=== PATIENT | female | born 1980 | race Caucasian/White ===

== ENCOUNTER 2018-03-17 08:41 | Emergency (ER) | payer MEDICAID ==
[~2018-03-17] VITALS: Ht 160 cm; Wt 58.3 kg
[~2018-03-17 08:41] MED LIST: OMEP20TA62 PO
[2018-03-17 09:03] VITALS: BP 102/71
[2018-03-17] MEDS ORDERED: DEXAMETHASONE 4 MG TABLET ONE (09:28)
[2018-03-17] MEDS ORDERED: DEXAMETHASONE 4 MG TABLET PO ONE (09:30)
== END 2018-03-17 10:25 | disposition home or self-care (01) ==
LOC: ED 10:15
DX: J00 Acute nasopharyngitis [common cold] (principal); H92.09 Otalgia, unspecified ear; F41.1 Generalized anxiety disorder
CPT/HCPCS: 71046; 87081; 87880; 99285

== ENCOUNTER 2019-05-31 10:32 | Emergency (ER) | payer MEDICAID ==
[~2019-05-31] VITALS: Ht 160 cm; Wt 55.7 kg
[2019-05-31 10:35] VITALS: BP 146/71
[2019-05-31 11:22] LABS: BASOPHILS # (AUTO) 0.02 x10^3/uL (0-0.1); BASOPHILS % (AUTO) 0 % (0-1); EOSINOPHILS % (AUTO) 1 % (1-7); LYMPHOCYTES # (AUTO) 1.48 x10^3/uL (1-3.4); LYMPHOCYTES % (AUTO) 21 % (22-44); MD NO; MEAN CORPUSCULAR HEMOGLOBIN 30.7 pg (27.0-34.8); MEAN CORPUSCULAR HGB CONC 33.3 g/dL (32.4-35.8); MEAN CORPUSCULAR VOLUME 92.3 fL (80-100); MEAN PLATELET VOLUME 10.2 fL (7.4-10.4); MONOCYTES # (AUTO) 0.24 x10^3/uL (0.2-0.8); MONOCYTES % (AUTO) 3 % (2-9); NEUTROPHILS # (AUTO) 5.22 x10^3/uL (1.8-6.8); NEUTROPHILS % (AUTO) 74 % (42-75); PLATELET COUNT 229 x10^3/uL (130-400); RED BLOOD COUNT 4.54 x10^6/uL (3.82-5.3); RED CELL DISTRIBUTION WIDTH 14.3 % (9.6-15.2)
--- NOTE | 2019-05-31 11:22 | NUR ---
URINE SAMPLE WALKED TO LAB
[2019-05-31 11:32] LABS: ALANINE AMINOTRANSFERASE 26 U/L (12-78); ALBUMIN 3.9 g/dL (3.4-5.0); ANION GAP 7 mmol/L (5-15); CALCIUM 8.6 mg/dL (8.5-10.1); CHLORIDE 110 mmol/L (98-107)
[2019-05-31 11:33] LABS: MICROSCOPIC AUTO
[2019-05-31 11:40] LABS: CULTURE INDICATED? YES
[2019-05-31 11:50] LABS: ALKALINE PHOSPHATASE 45 U/L (45-117); BILIRUBIN,TOTAL 0.4 mg/dL (0.2-1.0); CREATININE 0.76 mg/dL (0.55-1.02); TOTAL PROTEIN 7.3 g/dL (6.4-8.2)
== END 2019-05-31 12:11 | disposition home or self-care (01) ==
LOC: ED 12:00
DX: O20.0 Threatened abortion (principal); O23.11 Infections of bladder in pregnancy, first trimester; Z3A.01 Less than 8 weeks gestation of pregnancy
CPT/HCPCS: 36415; 76801; 80053; 81001; 84702; 85025; 86901; 87086; 99284

== ENCOUNTER 2019-06-04 07:58 | Emergency (ER) | payer MEDICAID ==
[~2019-06-04] VITALS: Ht 160 cm; Wt 55.0 kg
[2019-06-04 08:50] LABS: MICROSCOPIC INDICATED
[2019-06-04 09:19] LABS: BASOPHILS # (AUTO) 0.02 x10^3/uL (0-0.1); BASOPHILS % (AUTO) 0 % (0-1); EOSINOPHILS # (AUTO) 0.19 x10^3/uL (0-0.4); EOSINOPHILS % (AUTO) 3 % (1-7); LYMPHOCYTES # (AUTO) 1.26 x10^3/uL (1-3.4); LYMPHOCYTES % (AUTO) 22 % (22-44); MD NO; MEAN CORPUSCULAR HEMOGLOBIN 31.2 pg (27.0-34.8); MEAN CORPUSCULAR HGB CONC 33.2 g/dL (32.4-35.8); MEAN CORPUSCULAR VOLUME 93.8 fL (80-100); MEAN PLATELET VOLUME 10.3 fL (7.4-10.4); MONOCYTES # (AUTO) 0.27 x10^3/uL (0.2-0.8); MONOCYTES % (AUTO) 5 % (2-9); NEUTROPHILS # (AUTO) 4.05 x10^3/uL (1.8-6.8); NEUTROPHILS % (AUTO) 70 % (42-75); PLATELET COUNT 203 x10^3/uL (130-400); RED BLOOD COUNT 4.04 x10^6/uL (3.82-5.3); RED CELL DISTRIBUTION WIDTH 13.7 % (9.6-15.2)
[2019-06-04 09:23] LABS: ALBUMIN 3.4 g/dL (3.4-5.0); ANION GAP 5 mmol/L (5-15); CALCIUM 8.4 mg/dL (8.5-10.1); CHLORIDE 110 mmol/L (98-107); CREATININE 0.65 mg/dL (0.55-1.02)
[2019-06-04 09:27] LABS: CULTURE INDICATED? YES
[2019-06-04 10:10] VITALS: BP 96/67
--- NOTE | 2019-06-04 10:36 | NUR ---
Patient/Caregiver given discharge instructions and they have confirmed that they understand the instructions. Patient ambulatory with steady gait.
== END 2019-06-04 10:37 ==
LOC: ED 10:31
DX: O23.11 Infections of bladder in pregnancy, first trimester (principal); Z3A.01 Less than 8 weeks gestation of pregnancy
CPT/HCPCS: 36415; 76801; 80048; 81001; 82040; 84702; 85025; 87086; 99284